=== PATIENT | female | born 1990 | race Caucasian/White ===

== ENCOUNTER 2018-01-04 11:53 | Emergency (ER) | payer BC, OTHER ==
[2018-01-04] MEDS ORDERED: diPHENhydraMINE IV* 50 MG/ML 1 ml VIAL (BENADRYL) IV ONE (14:43)
[2018-01-04] MEDS ORDERED: Metoclopramide IV* 5 MG/ML 2 ML VIAL IV SLOW PU ONE (14:44)
[2018-01-04] MEDS ORDERED: NS 0.9% 1000 ML* 1,000 ML IV ONE (14:44)
[2018-01-04] MEDS ORDERED: Ketorolac INJ* 30 MG/ML 1 ML VIAL IV PUSH ONE (14:44)
--- NOTE | 2018-01-04 14:50 | ED ---
Headache - HPI Summary HPI Summary: 27 year old female with history of migraines presents with a migraine since yesterday. She states that last night her migraines seemed to resolve. States that it came back this morning. It started with an aura and she lost vision in both her eyes. She states that her vision has since returned. She admits to photophobia and phonophobia. He admits to nausea but no vomiting. She states her migraines are normally on the other side but sometimes occur on the right side where it is currently. She states that last migraine this intense was when she was in college and was looking through a microscope. She denies any recent change in vision. She states that intensity of her headache is 7 out of 10. She states this is not the worst headache of her life. She took ibuprofen without relief. She denies any fevers. She admits to some neck pain but no neck stiffness. No recent illness. She admit to sinus congestion that started earlier today. She states she works in a [employer]. - History Of Current Complaint Chief Complaint: EDHeadache Stated Complaint: HEADACHE Time Seen by Provider: 01/04/18 14:35 - Allergies/Home Medications Allergies/Adverse Reactions: Allergies Allergy/AdvReac Type Severity Reaction Status Date / Time No Known Allergies Allergy Verified 01/04/18 12:01 PMH/Surg Hx/FS Hx/Imm Hx Endocrine/Hematology History: Denies: Hx Anticoagulant Therapy Neurological History: Reports: Hx Headaches Infectious Disease History: No Infectious Disease History: Denies: Traveled Outside the [place] in Last 30 Days - Family History Known Family History: Negative: Diabetes - Social History Alcohol Use: Occasionally Substance Use Type: Reports: Marijuana Smoking Status (MU): Current Some Day Smoker Review of Systems Negative: Fever Negative: Chest Pain Negative: Shortness Of Breath Positive: Nausea. Negative: Vomiting Positive: Headache All Other Systems Reviewed And Are Negative: Yes Physical Exam Triage Information Reviewed: Yes Vital Signs On Initial Exam: Initial Vitals Temp Pulse Resp BP Pulse Ox 99.1 F 50 16 127/71 100 01/04/18 11:58 01/04/18 11:58 01/04/18 11:58 01/04/18 11:58 01/04/18 11:58 Vital Signs Reviewed: Yes Appearance: Positive: Pain Distress Skin: Positive: Warm, Dry Head/Face: Positive: Normal Head/Face Inspection Eyes: Positive: Normal, EOMI, GIOVANNA, Conjunctiva Clear ENT: Positive: Normal ENT inspection, Pharynx normal, TMs normal. Negative: Sinus tenderness Respiratory/Lung Sounds: Positive: Clear to Auscultation, Breath Sounds Present Cardiovascular: Positive: Normal, RRR Abdomen Description: Positive: Nontender, Soft Bowel Sounds: Positive: Present Musculoskeletal: Positive: Normal Neurological: Positive: Sensory/Motor Intact, Alert, Oriented to Person Place, Time, CN Intact II-III Psychiatric: Positive: Normal - [place] Coma Scale Best Eye Response: 4 - Spontaneous Best Motor Response: 6 - Obeys Commands Best Verbal Response: 5 - Oriented Coma Scale Total: 15 Diagnostics - Vital Signs Vital Signs Temp Pulse Resp BP Pulse Ox 01/04/18 13:44 98.6 F 42 16 104/60 100 01/04/18 11:58 99.1 F 50 16 127/71 100 - Laboratory Result Diagrams: 01/04/18 14:50 01/04/18 14:50 Lab Statement: Any lab studies that have been ordered have been reviewed, and results considered in the medical decision making process. Re-Evaluation - Re-Evaluation First Eval Re-Evaluation Time: 15:57 Change: Improved Comment: headache is better, now a 4 out of 10 Second Eval Re-Evaluation Time: 17:34 Change: Improved Comment: headache is minimial now after mg Headache Course/Dx - Course Course Of Treatment: 27 year old female with history of migraines presents with a migraine since yesterday. She states that last night her migraines seemed to resolve. States that it came back this morning. It started with an aura and she lost vision in both her eyes. She states that her vision has since returned. She admits to photophobia and phonophobia. He admits to nausea but no vomiting. She states her migraines are normally on the other side but sometimes occur on the right side where it is currently. She states that last migraine this intense was when she was in college and was looking through a microscope. She denies any recent change in vision. She states that intensity of her headache is 7 out of 10. She states this is not the worst headache of her life. She took ibuprofen without relief. She denies any fevers. She admits to some neck pain but no neck stiffness. No recent illness. She admit to sinus congestion that started earlier today. She states she works in a [employer]. on exam has photophobia. normal neuro exam. wbc normal. mg a little low so will add mg to toradol, benadryl and reglan. patient feeling better after combination. will discharge with zofran. patient understand and agrees with plan. - Diagnoses Differential Diagnosis/HQI/PQRI: Migraine, Sinus Headache, Tension Headache, Viral Syndrome Provider Diagnoses: Headache Discharge - Sign-Out/Discharge Documenting (check all that apply): Patient Departure - Discharge Plan Condition: Good Disposition: HOME Prescriptions: Ondansetron ODT TAB* [Zofran 4 MG Odt TAB*] 4 mg PO Q6H PRN #16 tab.odt PRN Reason: Nausea Patient Education Materials: General Headache (ED) Referrals: [facility] [Outside] Additional Instructions: Take Tylenol or ibuprofen for pain every 6 hours use zofran every 6 hours as needed for nausea, can take with benadryl every 6 hours Establish care with primary to follow up Return to ED if develop any new or worsening symptoms - Billing Disposition and Condition Condition: GOOD Disposition: Home
[2018-01-04 15:03] LABS: ABS Basophils 0 10^3/ul (0-0.2); ABS Eosinophils 0 10^3/ul (0-0.6); ABS Lymphocytes 0.6 10^3/ul (1.0-4.8); ABS Monocytes 0.2 10^3/ul (0-0.8); ABS Neutrophils 6.8 10^3/ul (1.5-7.7); ABS Nucleated RBC 0 10^3/ul; Eosinophil % 0.1 % (0-6); Hematocrit 37 % (35-47); Hemoglobin 12.2 g/dl (12.0-16.0); Lymphocyte % 8.1 % (25-47); Mean Corpuscular HGB Conc 33 g/dl (31-36); Mean Corpuscular Hemoglobin 30 pg (27-31); Mean Corpuscular Volume 88 fL (80-97); Nucleated Red Blood Cells % 0; Platelet Count 215 10^3/ul (150-450); Red Blood Count 4.15 10^6/ul (4.00-5.40); Red Cell Distribution Width 15 % (10.5-15); White Blood Count 7.7 10^3/ul (3.5-10.8)
[2018-01-04 15:19] LABS: EGFR Non-African American 92.8 (>60)
[2018-01-04] MEDS ORDERED: Magnesium Sulfate 1 GM IV* 1 GM/100 ML BAG IV ONE (15:57)
[2018-01-04 17:40] VITALS: BP 110/66
== END 2018-01-04 17:50 | disposition home or self-care (01) ==
LOC: ED 11:53
DX: R51 Headache (principal); H53.149 Visual discomfort, unspecified; R11.0 Nausea; M54.2 Cervicalgia; F17.200 Nicotine dependence, unspecified, uncomplicated; Z86.69 Personal history of other diseases of the nervous system and sense organs
CPT/HCPCS: 36415; 80053; 83735; 84702; 85025; 86618; 96361; 96374; 96375; 99283; J1200; J1885; J2765; J3475